=== PATIENT | female | born 1940 | race Native Hawaiian/Other Pacific Islander ===

== ENCOUNTER 2018-03-30 14:22 | Outpatient (CLI) | payer OTHER ==
[~2018-03-30 14:22] MED LIST: ASA LO-DOSE81 MG PO; BENZONATATE200 MG PO; INSUINJP SC; LISI20TA11 PO; MELOXICAM7.5 MG PO; METFTAB PO; PRINIVIL10 MG OR
[2018-03-30 14:37] LABS: PLATELET COUNT 374 K/uL (152-353)
[2018-03-30 15:01] LABS: POTASSIUM 4.8 mmol/L (3.6-5.2)
== END 2018-03-30 23:07 | disposition home or self-care (01) ==
LOC: LAB 14:22
PROVIDERS: Nurse Practitioner Family
DX: I10 Essential (primary) hypertension (principal); E11.65 Type 2 diabetes mellitus with hyperglycemia; R53.81 Other malaise; R53.83 Other fatigue; Z79.899 Other long term (current) drug therapy; Z51.81 Encounter for therapeutic drug level monitoring
CPT/HCPCS: 80053; 80061; 83036; 84436; 84443; 85027

== ENCOUNTER 2018-05-07 12:41 | Outpatient (CLI) | payer OTHER | END 2018-05-07 19:33 | disposition home or self-care (01) | LOC: MAMMO 12:41 | DX: Z12.31 Encounter for screening mammogram for malignant neoplasm of breast (principal); Z13.820 Encounter for screening for osteoporosis; Z78.0 Asymptomatic menopausal state ==

== ENCOUNTER 2018-06-03 15:07 | Observation (INO) | payer OTHER ==
[~2018-06-03] VITALS: Ht 162.6 cm; Wt 73.2 kg
[2018-06-03 15:05] VITALS: BP 167/122; TEMP 98
[2018-06-03 15:42] LABS: PLATELET COUNT 339 K/uL (152-353)
[2018-06-03 15:53] LABS: POTASSIUM 3.4 mmol/L (3.6-5.2)
[2018-06-03 16:00] VITALS: BP 149/66
[2018-06-03 17:00] VITALS: BP 147/74; TEMP 97.7
[2018-06-03 18:00] VITALS: BP 144/76
[2018-06-03 20:59] VITALS: BP 179/90; TEMP 97.9
[2018-06-03 22:38] VITALS: BP 179/90; TEMP 97.9; Ht 162.6 cm; Wt 73.2 kg
[2018-06-04] VITALS (7 sets, daily range): BP systolic 129–181; BP diastolic 59–79; TEMP 97.4–98.2
[2018-06-04 06:24] LABS: POTASSIUM 3.7 mmol/L (3.6-5.2)
[2018-06-04 06:32] LABS: PLATELET COUNT 193 K/uL (152-353)
[2018-06-05 04:00] VITALS: BP 147/71; TEMP 97.4
[2018-06-05 06:27] LABS: PLATELET COUNT 269 K/uL (152-353)
[2018-06-05 06:35] LABS: POTASSIUM 3.7 mmol/L (3.6-5.2)
[2018-06-05 08:17] VITALS: BP 138/77; TEMP 97.6
[2018-06-05] MEDS ORDERED: LIPITOR20 MG PO (09:42)
== END 2018-06-05 10:35 | disposition home or self-care (01) ==
LOC: ED 15:07 → MED/SURG 18:42
PROVIDERS: Emergency Medicine; ADMIT Family Medicine
DX: G45.8 Other transient cerebral ischemic attacks and related syndromes (principal); E11.9 Type 2 diabetes mellitus without complications; I10 Essential (primary) hypertension; E78.4 Other hyperlipidemia; M15.8 Other polyosteoarthritis; Z86.73 Personal history of transient ischemic attack (TIA), and cerebral infarction without residual deficits; R29.810 Facial weakness
CPT/HCPCS: 36415; 80053; 80061; 81000; 82550; 82553; 84484; 85027; 87077; 87086; 87088; 87186; 93005; 99220; 99284; G0378; J1815

== ENCOUNTER 2018-06-23 08:39 | Outpatient (CLI) | payer OTHER ==
[~2018-06-23 08:39] MED LIST changes: +LIPITOR20 MG PO
== END 2018-06-23 22:38 | disposition home or self-care (01) ==
LOC: RESP 08:39
DX: G45.8 Other transient cerebral ischemic attacks and related syndromes (principal); I10 Essential (primary) hypertension; E11.9 Type 2 diabetes mellitus without complications; E78.49 Other hyperlipidemia
CPT/HCPCS: 93306

== ENCOUNTER 2019-09-13 13:51 | Outpatient (CLI) | payer OTHER | END 2019-09-13 21:32 | disposition home or self-care (01) | LOC: MAMMO 13:51 | DX: Z12.31 Encounter for screening mammogram for malignant neoplasm of breast (principal); E11.9 Type 2 diabetes mellitus without complications; I10 Essential (primary) hypertension; E78.49 Other hyperlipidemia; E03.8 Other specified hypothyroidism ==

== ENCOUNTER 2019-11-02 10:46 | Outpatient (CLI) | payer OTHER | END 2019-11-02 21:59 | disposition home or self-care (01) | LOC: RAD 10:46 | DX: R05 Cough (principal); E03.8 Other specified hypothyroidism; I10 Essential (primary) hypertension; E78.49 Other hyperlipidemia; E11.9 Type 2 diabetes mellitus without complications ==

== ENCOUNTER 2020-08-01 11:06 | Outpatient (CLI) | payer OTHER | END 2020-08-01 22:37 | disposition home or self-care (01) | LOC: RESP 11:06 | PROVIDERS: ATTEND Nurse Practitioner Family | DX: I10 Essential (primary) hypertension (principal); E78.49 Other hyperlipidemia; E03.8 Other specified hypothyroidism; E11.9 Type 2 diabetes mellitus without complications | CPT/HCPCS: 93005 ==

== ENCOUNTER 2020-08-31 08:48 | Outpatient (CLI) | payer OTHER | END 2020-08-31 19:20 | disposition home or self-care (01) | LOC: RESP 08:48 | PROVIDERS: ATTEND Internal Medicine Cardiovascular Disease | DX: I10 Essential (primary) hypertension (principal) ==

== ENCOUNTER 2021-08-17 09:27 | Outpatient (CLI) | payer OTHER | END 2021-08-17 20:34 | disposition home or self-care (01) | LOC: US 09:27 | PROVIDERS: ATTEND Nurse Practitioner Family | DX: E03.8 Other specified hypothyroidism (principal); E78.49 Other hyperlipidemia; E11.9 Type 2 diabetes mellitus without complications; I10 Essential (primary) hypertension; R60.0 Localized edema; M79.89 Other specified soft tissue disorders ==

== ENCOUNTER 2021-08-17 10:43 | Emergency (ER) | payer OTHER ==
[~2021-08-17] VITALS: Ht 162.6 cm; Wt 73.0 kg
[2021-08-17 10:52] VITALS: TEMP 97.6
[2021-08-17 11:19] LABS: PLATELET COUNT 295 K/uL (152-353)
[2021-08-17 11:26] LABS: POTASSIUM 4.1 mmol/L (3.6-5.2)
[2021-08-17 11:30] VITALS: BP 168/63
[2021-08-17 11:43] LABS: PARTIAL THROMBOPLASTIN TIME 23.7 SECONDS (24.5-33.6)
== END 2021-08-17 11:49 | disposition home or self-care (01) ==
LOC: ED 10:43
PROVIDERS: Hospitalist
DX: I80.02 Phlebitis and thrombophlebitis of superficial vessels of left lower extremity (principal)
CPT/HCPCS: 80053; 85027; 85610; 85730; 99283

== ENCOUNTER 2022-06-19 10:19 | Outpatient (CLI) | payer OTHER | END 2022-06-19 19:11 | disposition home or self-care (01) | LOC: RAD 10:19 | PROVIDERS: ATTEND Nurse Practitioner Family | DX: M25.511 Pain in right shoulder (principal); M79.601 Pain in right arm ==